=== PATIENT | male | born 1975 | race Caucasian/White ===

== ENCOUNTER → 2018-04-03 | Outpatient (CLI) | payer OTHER | LOC: FIMAGING 12:55 | PROVIDERS: ATTEND Family Medicine | DX: M25.521 Pain in right elbow (principal); M24.021 Loose body in right elbow ==

== ENCOUNTER → 2018-09-27 | Outpatient (CLI) | payer OTHER | LOC: FIMAGING 18:57 | PROVIDERS: ATTEND Family Medicine | DX: Z11.3 Encounter for screening for infections with a predominantly sexual mode of transmission (principal); E78.5 Hyperlipidemia, unspecified; N52.9 Male erectile dysfunction, unspecified; Z82.49 Family history of ischemic heart disease and other diseases of the circulatory system ==

== ENCOUNTER → 2018-10-04 | Outpatient (CLI) | payer OTHER | LOC: FIMAGING 16:27 | PROVIDERS: ATTEND Family Medicine | DX: K40.90 Unilateral inguinal hernia, without obstruction or gangrene, not specified as recurrent (principal); E72.12 Methylenetetrahydrofolate reductase deficiency; E78.5 Hyperlipidemia, unspecified ==

== ENCOUNTER 2018-11-06 13:32 | Day surgery (SDC) | payer OTHER ==
--- NOTE | 2018-11-06 09:06 | PDHPUP ---
History & Physical Update H&P update statement: This history and physical update is based on an assessment of the patient which was completed after admission or registration (within 24 hours), but prior to the surgery/procedure. H&P update: H&P reviewed & patient examined, no change in patient's condition since H&P completed
[2018-11-06] MEDS ORDERED: LR 1,000 ML IV ONE (14:09)
[2018-11-06] MEDS ORDERED: LIDOCAINE 1% 2 ML INJ ID PRN (14:09)
[2018-11-06] MEDS ORDERED: ceFAZolin 2 GM/DEXTROSE 100 ML IV ONE (14:09)
[2018-11-06] MEDS ORDERED: MIDAZOLAM 2 MG/2 ML VIAL IVP ONE (14:26)
--- NOTE | 2018-11-06 14:26 | PDANEPAE ---
ANE History of Present Illness R inguinal hernia ANE Past Medical History - Cardiovascular History Hx Hypertension: No Hx Arrhythmias: No Hx Chest Pain: No Hx Coronary Artery / Peripheral Vascular Disease: No Hx CHF / Valvular Disease: No Hx Palpitations: No Cardiovascular History Comment: run on high end of normal - Pulmonary History Hx COPD: No Hx Asthma/Reactive Airway Disease: No Hx Recent Upper Respiratory Infection: No Hx Oxygen in Use at Home: No Hx Sleep Apnea: No Sleep Apnea Screening Result - Last Documented: Negative - Neurologic History Hx Cerebrovascular Accident: No Hx Seizures: No Hx Dementia: No - Endocrine History Hx Diabetes: No - Renal History Hx Renal Disorders: No - Liver History Hx Hepatic Disorders: No - Neurological & Psychiatric Hx Hx Neurological and Psychiatric Disorders: No - Cancer History Hx Cancer: No - Congenital Disorder History Hx Congenital Disorders: No - GI History Hx Gastrointestinal Disorders: Yes Gastrointestinal History Comment: dietary sensitivities - Other Health History Other Health History: none - Chronic Pain History Chronic Pain: No - Surgical History Prior Surgeries: wisdom teeth. tonsilectomy as child ANE Review of Systems Review of systems is: negative Review of Systems: - Exercise capacity METS (RN): 4 METS ANE Patient History - Allergies Allergies/Adverse Reactions: No Known Allergies Allergy (Verified 11/02/18 15:23) - Home Medications Home medications: home medication list seen and reviewed Home Medications: NK [No Known Home Meds] 11/02/18 [Last Taken Unknown] - NPO status NPO Status: no food or drink >8 hours - Anes Hx Anes Hx: no prior problems - Smoking Hx Smoking Status: Never smoked - Family Anes Hx Family Anes Hx: none Family Hx Anesthesia Complications: none ANE Labs/Vital Signs - Vital Signs Height: 170.18 cm Weight: 74.843 kg ANE Physical Exam - Airway Neck exam: FROM Mallampati Score: Class 1 Mouth exam: normal dental/mouth exam - Pulmonary Pulmonary: no respiratory distress, no rales or rhonchi - Cardiovascular Cardiovascular: regular rate and rhythym, no murmur, rub, or gallop - ASA Status ASA Status: I ANE Anesthesia Plan Anesthesia Plan: general endotracheal anesthesia
[2018-11-06] MEDS ORDERED: fentaNYL 250 MCG/5 ML INJ ONE (14:37)
[2018-11-06] MEDS ORDERED: PROPOFOL 200 MG/20 ML VIAL ONE (14:37)
[2018-11-06] MEDS ORDERED: BUPIVACAINE/EPI 0.5% 30 ML SDV ONE (15:06)
[2018-11-06] MEDS ORDERED: NALOXONE HCL 0.4 MG/ML INJ IVP PRN (15:48)
[2018-11-06] MEDS ORDERED: PROMETHAZINE HCL 25 MG/ML INJ IVP PRN (15:48)
[2018-11-06] MEDS ORDERED: fentaNYL 100 MCG/2 ML INJ IVP PRN (15:48)
[2018-11-06] MEDS ORDERED: ONDANSETRON 4 MG/2 ML VIAL IVP PRN (15:48)
[2018-11-06] MEDS ORDERED: HYDROmorphONE/DILAUDID 2 MG/ML INJ IVP PRN (15:48)
[2018-11-06] MEDS ORDERED: SUGAMMADEX SODIUM 200 MG/2 ML VIAL IVP ONE (15:55)
[2018-11-06] MEDS ORDERED: DEXAMETHASONE 4 MG/ML VIAL ONE (15:56)
[2018-11-06] MEDS ORDERED: ONDANSETRON 4 MG/2 ML VIAL ONE (15:56)
[2018-11-06] MEDS ORDERED: LIDOCAINE 2% 5 ML SDV ONE (15:56)
--- NOTE | 2018-11-06 15:58 | POSTOPPROG ---
Post Op Note Date of Operation: 11/06/18 Surgeon: Itz Rodríguez [employer] Manager: RAJEEV Simeon Anesthesiologist: Era Anesthesia: GET(General Endotracheal) Pre-op Diagnosis: RIH Post-op Diagnosis: same, indirect Procedure: robotic assisted right inguinal hernia repair with mesh Findings: mod R indirect defect Inf/Abcess present in the surg proc area at time of surgery?: No EBL: Minimal
--- NOTE | 2018-11-06 16:14 | POSTANESTH ---
Post Anesthetic Evaluation Cardiovascular Status: Normal, Stable, Similar to Pre-Op Cond Respiratory Status: Normal, Stable, Similar to Pre-op Cond. Level of Consciousness/Mental Status: Can Participate in Eval, Alert and Oriented Pain Control: Adequate, Prn Tx Ordered Nausea/Vomiting Control: Adequate, Prn Tx Ordered Complications Possibly Related to Anesthesia: None Noted
[2018-11-06 16:31] VITALS: BP 144/62
--- NOTE | 2018-11-09 09:50 | GOP ---
[f rep st] OPERATIVE REPORT DATE OF OPERATION: 11/06/2018 SURGEON: Itz Rodríguez MD ASSIGNMENT CLERK: Lima Aguiar CFA. ANESTHESIA: General endotracheal. ANESTHESIOLOGIST: Jorgito Girard MD. PREOPERATIVE DIAGNOSIS: Right inguinal hernia. POSTOPERATIVE DIAGNOSIS: Indirect right inguinal hernia. PROCEDURE PERFORMED: Robotic-assisted laparoscopic right inguinal hernia repair with mesh. FINDINGS: Moderate right-sided indirect defect successfully reduced and repaired with Bard 3D Light large size right-sided mesh. SPECIMENS: None. ESTIMATED BLOOD LOSS: 5 cc. DESCRIPTION OF PROCEDURE: The patient was greeted in the preoperative suite. Once again, risks, ab efits, and alternatives were discussed. Consent was signed. He was then brought back to the operati ve suite, placed on the OR table in supine position. After all anesthesia machines including SCDs we re on and functioning, [employer] time-out was performed. After successful induction of general anesthesia, the patient's abdomen was prepped and draped in typical sterile fashion. I co mmenced the procedure by making a supraumbilical cutdown through which the Veress needle was passed. I achieved pneumoperitoneum to 15 mmHg, which was well tolerated by the patient. Through this, I th en inserted an 8 mm trocar. Once successfully in the abdomen I inserted 2 additional 8 mm trocars, o ne in the right and one in the left upper quadrant. The patient was then placed in gentle Trendelenb urg position and the robot was docked. I turned my attention first toward the left groin where I enc ountered no hernias. I then turned my attention toward the right, where I did encounter a defect. I then scored my preperitoneal plane just adjacent to the ASIS all the way medial to the pubic tubercl e. I then developed this plane all the way down to the visceral sac. I skeletonized the cord struct ures and successfully reduced the hernia while protecting the cord structures throughout. Once succe ssfully skeletonized an appropriate pocket was placed. The mesh was then brought and placed. It was tacked to Jese ligament with an interrupted 2-0 Vicryl stitch as well as on either side of the inf erior epigastric vessels. The mesh was lying flat without any kinks. The peritoneal defect was then closed with a running 2-0 V-Loc suture. Pneumoperitoneum was then evacuated. Ports were then remov ed and closed with running 4-0 Monocryl. The patient was then extubated in the operative suite and t aken to PACU in satisfactory condition. DRAINS: None. COUNTS: All counts were reported as correct x2. /[id number]/MODL
== END 2018-11-06 16:54 | disposition home or self-care (01) ==
LOC: FSGY 13:32
PROVIDERS: ATTEND Surgery
DX: K40.90 Unilateral inguinal hernia, without obstruction or gangrene, not specified as recurrent (principal)
CPT/HCPCS: C1781; J0690; J1100; J2250; J2405; J2704; J3010